=== PATIENT | male | born 1970 ===

== ENCOUNTER 2021-12-01 07:10 | Day surgery (SDC) | payer OTHER ==
[~2021-12-01] VITALS: Ht 175.3 cm; Wt 84.5 kg
[~2021-12-01 07:10] MED LIST: CELEBREX 200MG200 MG PO; GLUCOPHAGE500 MG/TAB PO; IMITREX100 MG PO; LIPITOR 10MG10 MG PO; OSTEO-BI-FLEX 21 TAB PO; PROSCAR 5MG5 MG PO
[2021-12-01 07:45] VITALS: BP 122/83; PULSE 71; TEMP 97.2
[2021-12-01] MEDS ORDERED: PRINIVIL5 MG PO (07:50)
[2021-12-01] MEDS ORDERED: JANUVIA 100MG100 MG PO (07:51)
[2021-12-01] MEDS ORDERED: CARAFATE 1GM1 G PO (07:52)
[2021-12-01] MEDS ORDERED: CELEBREX 1100 MG/CAP PO (07:53)
[2021-12-01] MEDS ORDERED: IMITREX 25MG TA25 MG PO (07:53)
[2021-12-01 09:05] VITALS: BP 107/72; PULSE 71; TEMP 97.4
--- NOTE | 2021-12-01 09:05 | NUR ---
0905 Pt returns from endo procedure via cart and RN assist to [facility] [facility]. Pt ambulates from cart to recliner with RN assist. Monitors on and alarms set. Call light within reach. Report received from ALBERTINA Velez. Pt alert and oriented. Pt requests coffee and applesauce. Pt denies any pain or nausea. Pt's present in room. 0915 Pt taking food and drink well. No complications noted. 1005 Discharge instructions given to pt and pt's . All questions answered to their satisfaction. Handed to pt are a thank you card and discharge information. 1010 Pt transferred out of the hospital via wheelchair and [place] assist, to private vehicle driven by pt's .
[2021-12-01 09:15] VITALS: BP 105/75; PULSE 72
[2021-12-01 09:30] VITALS: BP 102/79; PULSE 68
[2021-12-01 09:45] VITALS: BP 111/80; PULSE 64
[2021-12-01 11:20] VITALS: BP 107/72; PULSE 70
== END 2021-12-01 10:10 | disposition home or self-care (01) ==
LOC: SDCO 07:10
DX: Z12.11 Encounter for screening for malignant neoplasm of colon (principal); D12.5 Benign neoplasm of sigmoid colon; K21.00 Gastro-esophageal reflux disease with esophagitis, without bleeding; K22.70 Barrett's esophagus without dysplasia; K92.1 Melena; I10 Essential (primary) hypertension; G47.33 Obstructive sleep apnea (adult) (pediatric); G43.909 Migraine, unspecified, not intractable, without status migrainosus; M19.90 Unspecified osteoarthritis, unspecified site; M54.9 Dorsalgia, unspecified; E11.9 Type 2 diabetes mellitus without complications; G47.30 Sleep apnea, unspecified; F43.10 Post-traumatic stress disorder, unspecified; Z79.899 Other long term (current) drug therapy; Z79.84 Long term (current) use of oral hypoglycemic drugs; Z99.89 Dependence on other enabling machines and devices; Z80.0 Family history of malignant neoplasm of digestive organs; Z83.3 Family history of diabetes mellitus
CPT/HCPCS: J7030